=== PATIENT | female | born 1970 | race Caucasian/White ===

== ENCOUNTER 2017-08-07 01:03 | Emergency (ER) | payer OTHER ==
[~2017-08-07] VITALS: Ht 170.2 cm; Wt 90.7 kg
[2017-08-07] MEDS ORDERED: BACLOFEN20 MG PO (01:22)
[2017-08-07] MEDS ORDERED: JANUVIA100 MG PO (01:22)
[2017-08-07] MEDS ORDERED: NORCO 5-325 TA1 EACH PO (01:23)
[2017-08-07] MEDS ORDERED: CYCLOBENZAPRINE10 MG PO (01:44)
== END 2017-08-07 02:05 | disposition home or self-care (01) ==
LOC: ED 01:03
DX: G89.29 Other chronic pain (principal); M54.5 Low back pain; E11.9 Type 2 diabetes mellitus without complications; F17.200 Nicotine dependence, unspecified, uncomplicated; Z88.5 Allergy status to narcotic agent; Z79.899 Other long term (current) drug therapy
CPT/HCPCS: 96372; 99282; J1885

== ENCOUNTER 2017-12-06 16:47 | Emergency (ER) | payer SELFPAY ==
[~2017-12-06] VITALS: Ht 170.2 cm; Wt 90.7 kg
[~2017-12-06 16:47] MED LIST: BACLOFEN20 MG PO; CYCLOBENZAPRINE10 MG PO; JANUVIA100 MG PO; NORCO 5-325 TA1 EACH PO
[2017-12-06] MEDS ORDERED: NORCO 5-325 TA1 EACH PO (19:41)
== END 2017-12-06 19:54 | disposition home or self-care (01) ==
LOC: ED 16:47
DX: M54.42 Lumbago with sciatica, left side (principal); E11.9 Type 2 diabetes mellitus without complications; F17.200 Nicotine dependence, unspecified, uncomplicated; Z88.5 Allergy status to narcotic agent; Z79.899 Other long term (current) drug therapy
CPT/HCPCS: 99283

== ENCOUNTER 2019-03-06 09:21 | Emergency (ER) | payer OTHER ==
[~2019-03-06] VITALS: Ht 170.2 cm; Wt 89.8 kg
[~2019-03-06 09:21] MED LIST changes: +GLUCOPHAGE500 MG PO
--- OUTSIDE RECORDS SUMMARY | 2019-03-06 09:24 | XMS ---
PreManage Notification: PIPPA JOHNSON Security Window Shade Installer Events No recent Security Events currently on file CRITERIA MET - [facility] - 2 Visits in 30 Days CARE PROVIDERS LUMA ZAMARRIPA Physician Esthetician Spa Current PHONE: [phone] LUMA ZAMARRIPA Primary Care Current PHONE: Unknown [facility] Primary Care [facility] PHONE: Unknown Elvira has no Care Guidelines for this patient. E.Jes. VISIT COUNT (12 MO.) 1 [facility] 2 [facility]. [place] 2 MANUEL LimChava TOTAL 5 NOTE: Visits indicate total known visits. ED/UCC VISIT TRACKING (12 MO.) 03/06/2019 09:22 [place] [place] COMPLAINT: - LEFT ARM PAIN [facility]2019 11[facility] DIAGNOSES: 0. RECHECK CAST IS TOO TIGHT 0. Encounter for fitting and adjustment of other specified devices 1. Unspecified fracture of the lower end of left radius, subsequent encounter for closed fracture with routine healing 2. custodial (current) use of oral hypoglycemic drugs 2. Type 2 diabetes mellitus with diabetic neuropathy, unspecified 2. Unspecified fracture of lower end of left ulna, subsequent encounter for closed fracture with routine healing 2. Unspecified fall, subsequent encounter 02/25/2019 02:43 [facility] [place] TYPE: Emergency DIAGNOSES: 0. Pain in left wrist 0. WRIST PAIN 0. Pain in left forearm 1. Other extraarticular fracture of lower end of left radius, initial encounter for closed fracture 2. Alcohol abuse with intoxication, unspecified 2. Nondisplaced fracture of left ulna styloid process, initial encounter for closed fracture 2. Tobacco use 2. Type 2 diabetes mellitus without complications 2. Unspecified fall, initial encounter 01/21/2019 15:19 [facility] [place] TYPE: Emergency COMPLAINT: - LEFT RIB/SHOULDER PAIN, DIAGNOSES: - Pleurodynia 07/27/2018 22:05 [facility] [place] TYPE: Emergency DIAGNOSES: - BACK PAIN INPATIENT VISIT TRACKING (12 MO.) No inpatient visits to display in this time frame [id number]
[2019-03-06] MEDS ORDERED: GABAPENTIN100 MG PO (09:33)
[2019-03-06] MEDS ORDERED: CYCLOBENZAPRINE5 MG PO (09:33)
[2019-03-06] MEDS ORDERED: NORCO 5-325 TA1 EACH PO (09:44)
== END 2019-03-06 09:55 | disposition home or self-care (01) ==
LOC: ED 09:21
DX: S62.102A Fracture of unspecified carpal bone, left wrist, initial encounter for closed fracture (principal); E11.9 Type 2 diabetes mellitus without complications; F17.200 Nicotine dependence, unspecified, uncomplicated; Z88.5 Allergy status to narcotic agent; Z79.84 Long term (current) use of oral hypoglycemic drugs; Z79.899 Other long term (current) drug therapy; W18.30XA Fall on same level, unspecified, initial encounter
CPT/HCPCS: 99283; 99406

== ENCOUNTER 2019-03-18 22:12 | Emergency (ER) | payer OTHER ==
[~2019-03-18] VITALS: Ht 170.2 cm; Wt 88.9 kg
[~2019-03-18 22:12] MED LIST changes: +CYCLOBENZAPRINE5 MG PO; +GABAPENTIN100 MG PO
--- OUTSIDE RECORDS SUMMARY | 2019-03-18 22:14 | XMS ---
PreManage Notification: PIPPA JOHNSON Security Senior J2Ee Developer Events No recent Security Events currently on file CRITERIA MET - [facility] - 2 Visits in 30 Days CARE PROVIDERS LUMA ZAMARRIPA Physician Remote Sensing Analyst Current PHONE: [phone] ULMA ZAMARRIPA Primary Care Current PHONE: Unknown LISBET RAMIREZ [facility] PHONE: Unknown Elvira has no Care Guidelines for this patient. EElmo VISIT COUNT (12 MO.) 1 [facility] 2 [facility]. [place] 3 MANUEL Álvarez TOTAL 6 NOTE: Visits indicate total known visits. 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 RECHECK CAST IS TOO TIGHT 0. Encounter for fitting and adjustment of other specified devices 1. Unspecified fracture of the lower end of left radius, subsequent encounter for closed fracture with routine healing 2. skilled nursing (current) use of oral hypoglycemic drugs 2. Type 2 diabetes mellitus with diabetic neuropathy, unspecified 2. Unspecified fracture of lower end of left ulna, subsequent encounter for closed fracture with routine healing 2. Unspecified fall, subsequent encounter 02/25/2019 02:43 [facility] [place] TYPE: Emergency DIAGNOSES: 0. Pain [...] RIB/SHOULDER PAIN, DIAGNOSES: - Pleurodynia 07/27/2018 22:05 [facility] [place] TYPE: Emergency DIAGNOSES: - BACK PAIN INPATIENT VISIT TRACKING (12 MO.) No inpatient visits to display in this time frame [id number]
[2019-03-19] MEDS ORDERED: KEFLEX500 MG PO (00:10)
== END 2019-03-19 00:29 | disposition home or self-care (01) ==
LOC: ED 22:12
DX: N39.0 Urinary tract infection, site not specified (principal); E11.9 Type 2 diabetes mellitus without complications; F17.200 Nicotine dependence, unspecified, uncomplicated; Z88.5 Allergy status to narcotic agent; Z79.899 Other long term (current) drug therapy; Z79.84 Long term (current) use of oral hypoglycemic drugs
CPT/HCPCS: 74176; 80053; 81001; 85025; 96374; 99284-25; J1885

== ENCOUNTER 2019-08-29 23:49 | Emergency (ER) | payer OTHER ==
[~2019-08-29] VITALS: Ht 170.2 cm; Wt 87.1 kg
[~2019-08-29 23:49] MED LIST changes: +KEFLEX500 MG PO
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
== END 2019-08-30 01:15 | disposition home or self-care (01) ==
LOC: ED 23:49
DX: T74.21XA Adult sexual abuse, confirmed, initial encounter (principal); S20.01XA Contusion of right breast, initial encounter; F17.200 Nicotine dependence, unspecified, uncomplicated; E11.9 Type 2 diabetes mellitus without complications; Z87.442 Personal history of urinary calculi; Z79.899 Other long term (current) drug therapy
CPT/HCPCS: 96372; 99284; J0696

== ENCOUNTER 2020-10-11 10:15 | Emergency (ER) | payer OTHER ==
[~2020-10-11] VITALS: Ht 170.2 cm; Wt 78.0 kg
[~2020-10-11 10:15] MED LIST changes: +IBU600 MG PO; +TYLENOL325 M1 PO
--- OUTSIDE RECORDS SUMMARY | 2020-10-11 10:18 | XMS ---
PreManage Notification: PIPPA JOHNSON Security Air And Missile Defense Crewmember Events No recent Security Events currently on file CRITERIA MET - [facility] - 2 Visits in 30 Days CARE PROVIDERS LUMA ZAMARRIPA Physician Family Law Mediator Current PHONE: [phone] Ruthie Renner Community Health Worker 08/30/2019-Current PHONE: [phone] Elvira has no Care Guidelines for this patient. Care History Medical/Surgical 03/29/2019 [facility] - PATIENT HAS AN APT TO ESTABLISH CARE WITH PA AT [facility] CARE ON @ 11:00AM. 03/20/2019 [facility] CASE MANAGEMENT REFERRAL MADE- PATIENT HAS [facility] AND NO PCP. [facility] MO[facility] TOTAL 3 NOTE: Visits indicate total known visits. ED/UCC VISIT TRACKING (12 MO.) 10/11/2020 10:15 [facility] [place] TYPE: Emergency COMPLAINT: - BLOOD SUGAR ISSUE 10/10/2020 18:45 [facility] [place] TYPE: Emergency COMPLAINT: - HIGH BLOOD SUGAR/ HIGH BLOOD PRESSURE 01/31/2020 15:05 [facility] TYPE: Emergency DIAGNOSES: - Syncope and collapse - Syncope INPATIENT VISIT TRACKING (12 MO.) No inpatient visits to display in this time frame [id number]
[2020-10-11] MEDS ORDERED: METFORMIN HCL500 MG PO (13:08)
[2020-10-11] MEDS ORDERED: BACTRIM DS TAB1 EACH PO (13:08)
== END 2020-10-11 13:23 | disposition home or self-care (01) ==
LOC: ED 10:15
DX: E11.65 Type 2 diabetes mellitus with hyperglycemia (principal); N39.0 Urinary tract infection, site not specified; F17.200 Nicotine dependence, unspecified, uncomplicated; Z88.5 Allergy status to narcotic agent; Z79.899 Other long term (current) drug therapy
CPT/HCPCS: 80053; 81001; 83690; 83735; 84703; 85025; 99284; J7030

== ENCOUNTER 2021-04-12 02:05 | Emergency (ER) | payer OTHER ==
[~2021-04-12] VITALS: Ht 170.2 cm; Wt 78.0 kg
[~2021-04-12 02:05] MED LIST changes: +BACTRIM DS TAB1 EACH PO; +METFORMIN HCL500 MG PO
== END 2021-04-12 03:15 | disposition home or self-care (01) ==
LOC: ED 02:05
DX: S66.911A Strain of unspecified muscle, fascia and tendon at wrist and hand level, right hand, initial encounter (principal); E11.9 Type 2 diabetes mellitus without complications; F17.200 Nicotine dependence, unspecified, uncomplicated; Z88.5 Allergy status to narcotic agent; X50.9XXA Other and unspecified overexertion or strenuous movements or postures, initial encounter; Z79.84 Long term (current) use of oral hypoglycemic drugs
CPT/HCPCS: 73110; 99283; A9270

== ENCOUNTER 2021-11-07 23:51 | Emergency (ER) | payer OTHER ==
[~2021-11-07] VITALS: Ht 170.2 cm; Wt 78.0 kg
== END 2021-11-08 01:27 | disposition home or self-care (01) ==
LOC: ED 23:51
DX: S93.402A Sprain of unspecified ligament of left ankle, initial encounter (principal); X50.1XXA Overexertion from prolonged static or awkward postures, initial encounter; E11.9 Type 2 diabetes mellitus without complications; F17.200 Nicotine dependence, unspecified, uncomplicated; Z88.5 Allergy status to narcotic agent
CPT/HCPCS: 73610; 73630; 99283-25

== ENCOUNTER 2021-11-27 02:59 | Emergency (ER) | payer OTHER ==
[~2021-11-27] VITALS: Ht 170.2 cm; Wt 78.0 kg
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
[2021-11-27] MEDS ORDERED: GABAPENTIN300 MG PO (03:16)
[2021-11-27] MEDS ORDERED: GLIMEPIRIDE4 MG PO (03:16)
[2021-11-27] MEDS ORDERED: METFORMIN HCL500 MG PO (03:16)
== END 2021-11-27 04:19 | disposition home or self-care (01) ==
LOC: ED 02:59
DX: M25.572 Pain in left ankle and joints of left foot (principal); X50.9XXA Other and unspecified overexertion or strenuous movements or postures, initial encounter; E11.9 Type 2 diabetes mellitus without complications; F17.200 Nicotine dependence, unspecified, uncomplicated; Z88.5 Allergy status to narcotic agent; Z79.899 Other long term (current) drug therapy; Z79.84 Long term (current) use of oral hypoglycemic drugs
CPT/HCPCS: 73610; 73630; 99283-25

== ENCOUNTER 2022-05-28 21:22 | Emergency (ER) | payer OTHER ==
[~2022-05-28] VITALS: Ht 170.2 cm; Wt 77.0 kg
[~2022-05-28 21:22] MED LIST changes: +GABAPENTIN300 MG PO; +GLIMEPIRIDE4 MG PO
[2022-05-28] MEDS ORDERED: DOXYCYCLINE HY100 MG PO (23:31)
== END 2022-05-29 02:15 | disposition home or self-care (01) ==
LOC: ED 21:22
DX: S61.200A Unspecified open wound of right index finger without damage to nail, initial encounter (principal); L03.011 Cellulitis of right finger; F17.200 Nicotine dependence, unspecified, uncomplicated; Z88.5 Allergy status to narcotic agent; W22.8XXA Striking against or struck by other objects, initial encounter
CPT/HCPCS: 36415; 73130; 76882; 80053; 85025; 96365; 96366; 96375; 99284-25; A9270; J1170; J2405; J3370; J7060

== ENCOUNTER → 2022-07-23 | Emergency (ER) | payer OTHER ==
[~2022-07-23] VITALS: Ht 170.2 cm; Wt 76.4 kg
[~2022-07-23] MED LIST changes: +DOXYCYCLINE HY100 MG PO
== END ==
LOC: ED 21:45
DX: L03.114 Cellulitis of left upper limb (principal); E11.9 Type 2 diabetes mellitus without complications; F17.200 Nicotine dependence, unspecified, uncomplicated; Z88.5 Allergy status to narcotic agent
CPT/HCPCS: 36415; 73130; 80053; 83036; 85025; 96365; 96375; 99283-25; J1885; J3370; J7030